=== PATIENT | female | born 2000 | race Caucasian/White ===

== ENCOUNTER → 2018-02-26 07:34 | Outpatient (CLI) | payer BC, SELFPAY ==
--- NOTE | 2018-02-26 07:39 | CT_ITS ---
STUDY: CT BRAIN WITHOUT CONTRAST REASON FOR EXAM: Female, 17 years old. Intractable headaches. RADIATION DOSAGE (If Supplied By Facility): CTDIvol = ( 60.81 ) mGy, DLP = ( 1021.47 ) mGycm TECHNIQUE: Transaxial CT imaging of the brain was performed without administration of intravenous contrast material. Individualized dose optimization techniques were used for this CT. COMPARISON: None. FINDINGS: Normal soft tissue structures. Normal calvarium. Normal size ventricles and extra-axial spaces for the patient's age. Normal white matter tracts of the cerebral hemispheres. Normal basal ganglia and thalami. Normal brainstem. Normal cerebellum. There is no intracranial hemorrhage. There are no findings of an acute ischemic infarction. Normal visualized paranasal sinuses. CT/Brain/Head without Contrast IMPRESSION: Normal unenhanced CT scan of the brain. Electronically Signed: Randy Garza MD at 9:11 EDT Tel [phone], Service support ,
== END ==
PROVIDERS: Family Provider Pediatrics; PCP Pediatrics; Visit Provider Pediatrics
DX: R51 Headache (principal)
CPT/HCPCS: 70450

== ENCOUNTER → 2018-05-23 13:13 | Outpatient (CLI) | payer BC, SELFPAY ==
--- NOTE | 2018-05-23 13:18 | RAD_ITS ---
STUDY: X-RAY - CERVICAL SPINE REASON FOR EXAM: Female, 17 years old. Migraines x several months. TECHNIQUE: 7 view(s) of the cervical spine were obtained, including lateral flexion and extension views. COMPARISON: None FINDINGS: Normal anterior atlantoaxial articulation. Normal odontoid process. Normal cervical lordosis. Moderate range of motion on flexion and extension Normal vertebral bodies and endplates. Normal disc space heights. Normal visualized intervertebral neuroforamina. The prevertebral soft tissue structures are unremarkable. There is mild lobulated fullness of the posterior nasopharyngeal soft tissues that suggests lymphoid hypertrophy of the adenoids. There is no demonstrated osseous destructive process or acute fracture of the cervical spine. RAD/Cerv Spine Obl/Flex/Ext Comp IMPRESSION: Normal x-ray examination of the visualized cervical spine. Electronically Signed: Rizwan Holguin MD at 15:02 EST , Service support ,
== END ==
PROVIDERS: Family Provider Pediatrics; PCP Pediatrics; Referring Provider Psychiatry & Neurology Neurology; Visit Provider Psychiatry & Neurology Neurology
DX: M54.81 Occipital neuralgia (principal)
CPT/HCPCS: 72052

== ENCOUNTER → 2018-11-15 08:53 | Outpatient (CLI) | payer BC, SELFPAY ==
--- NOTE | 2018-11-15 09:15 | MRI_ITS ---
STUDY: MRI BRAIN WITH AND WITHOUT CONTRAST REASON FOR EXAM: Female, 18 years old. Migraines. TECHNIQUE: Standardized multiplanar fat and water weighted pulse sequences were obtained. 10 IV Dotarem was administered for the contrast portion of the examination. COMPARISON: None. FINDINGS: Normal size of the ventricles and extra-axial spaces for the patient's age. Normal white matter tracts of the supratentorial brain. There is no evidence for recent intracranial ischemia or other cause of cytotoxic edema on diffusion weighted imaging (DWI). Normal T2* images of the brain without demonstrated susceptibility artifact. There is no demonstrated hemosiderin stain. Normal bilateral basal ganglia. Normal thalami. There is no extra-axial fluid accumulation. Normal flow voids within the major intracranial circulation suggesting patency by spin echo criteria. Normal venous enhancement. There is no enhancing intra-axial or extra-axial abnormality. Normal sella turcica, pituitary gland, infundibular stalk, optic chiasm and hypothalamus. Normal tectal plate and pineal gland. Normal midbrain, cat and medulla. Normal cerebellum. Normal basal cisterns. Normal bilateral temporal bones. Normal bilateral internal auditory canals. No demonstrated orbital abnormality, within the constraints of a routine brain study. Normal visualized paranasal sinuses. Normal calvarium and skull base. Normal visualized soft tissue structures. Normal visualized upper cervical spine. MRI/Brain W/WO Contrast IMPRESSION: No evidence of acute intracranial bleed, mass or ischemia. No evidence of underlying white matter signal changes to suggest chronic migraine ischemia. Electronically Signed: Gaurav Anthony DO at 11:03 EDT , Service support ,
--- NOTE | 2018-11-15 10:32 | EKG12_ITS ---
Test Reason : SYNCOPE Blood Pressure : / mmHG Vent. Rate : 080 BPM Atrial Rate : 080 BPM P-R Int : 136 ms QRS Dur : 076 ms QT Int : 374 ms P-R-T Axes : -24 061 023 degrees QTc Int : 431 ms Normal sinus rhythm Normal ECG Confirmed by ALONZO SCHMID, GUILLERMINA ([id number]), food expeditor MARYANA WARREN ([id number]) on 11/17/2018 1:47:40 PM Referred By: Bebeto Rodriguez Confirmed By:GUILLERMINA ROSADO MD
== END ==
PROVIDERS: Family Provider Pediatrics; PCP Pediatrics; Referring Provider Psychiatry & Neurology Neurology; Visit Provider Psychiatry & Neurology Neurology
DX: R55 Syncope and collapse (principal)
CPT/HCPCS: 70553; 93005; A9575